=== PATIENT | female | born 1995 | race Caucasian/White ===

== ENCOUNTER 2019-06-01 03:16 | Emergency (ER) | payer OTHER ==
[2019-06-01 03:32] VITALS: BP 131/91; PULSE 89; TEMP 98.8; BMI 25.0
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
[2019-06-01] MEDS ORDERED: ONDANSETRON *ODT* 4 MG TABLET SL ONE (04:15)
[2019-06-01] MEDS ORDERED: IBUPROFEN 600 MG TABLET (FP) PO ONE (04:28)
[2019-06-01] MEDS ORDERED: AZITHROMYCIN 500 MG TABLET PO ONE (04:37)
[2019-06-01] MEDS ORDERED: HEPATITIS B VIR VAC (ENGERIX) 10 MCG/0.5 ML VIAL (PF) IM ONE (04:39)
[2019-06-01] MEDS ORDERED: HIV POST EXPOSURE PROPHYLAXIS KIT NR ONE (04:40)
[2019-06-01] MEDS ORDERED: AZITHROMYCIN 250 MG TABLET ONE (04:43)
[2019-06-01] MEDS ORDERED: HIV POST EXPOSURE PROPHYLAXIS KIT PO ONE (04:43)
[2019-06-01 05:36] LABS: BASO % 0.6 % (0-2.0); EOS % 0.5 % (0-4.5); HEMATOCRIT 37.7 % (32.4-45.2); HEMOGLOBIN 12.8 GM/dL (10.7-15.3); LYMPH % 34.5 % (8-40); MCH 29.7 pg (25.7-33.7); MCHC 33.8 g/dl (32.0-36.0); MEAN CELL VOLUME 87.7 fl (80-96); MEAN PLT VOLUME 7.3 fl (7.5-11.1); MONO % 5.5 % (3.8-10.2); NEUT % 58.9 % (42.8-82.8); PLATELET COUNT 266 K/MM3 (134-434); RDW 12.6 % (11.6-15.6)
[2019-06-01 06:06] LABS: ALBUMIN 4.1 g/dl (3.4-5.0); BILIRUBIN,TOTAL 0.5 mg/dL (0.2-1); BLOOD UREA NITROGEN 10.1 mg/dL (7-18); CALCIUM 9.1 mg/dL (8.5-10.1); CREATININE 0.6 mg/dL (0.55-1.3); POTASSIUM 3.9 mmol/L (3.5-5.1); TOT PROT 7.8 g/dl (6.4-8.2)
[2019-06-02 18:08] LABS: HEP B CORE AB, TOT Negative (Negative)
== END 2019-06-01 06:39 | disposition home or self-care (01) ==
LOC: JER 03:16
PROC: 3E02329 Introduction of Other Anti-infective into Muscle, Percutaneous Approach (ICD-10-PCS; principal; 2019-06-01)
PROC: 3E023GC Introduction of Other Therapeutic Substance into Muscle, Percutaneous Approach (ICD-10-PCS; 2019-06-01)
DX: T76.21XA Adult sexual abuse, suspected, initial encounter (principal); F41.9 Anxiety disorder, unspecified; K29.70 Gastritis, unspecified, without bleeding; Z91.013 Allergy to seafood
CPT/HCPCS: 36415; 80053; 85025; 86704; 86706; 86707; 86708; 86709; 86803; 87340; 87389; 90744; 99283-25; Q0162

== ENCOUNTER 2023-01-09 09:09 | Emergency (ER) | payer OTHER ==
[2023-01-09 09:23] VITALS: BP 131/73; PULSE 70; RESP 18; TEMP 98.5; BMI 28.4
[2023-01-09] MEDS ORDERED: KETOROLAC TROMETHAMINE 30 MG/1 ML VIAL IM ONE (10:14)
[2023-01-09] MEDS ORDERED: LIDOCAINE 5% TOPICAL PATCH TP ONE (10:14)
[2023-01-09] MEDS ORDERED: ACETAMINOPHEN 1000 MG/100 ML BAG IVPB ONE ×2 (10:22→14:36)
[2023-01-09] MEDS ORDERED: METHOCARBAMOL 500 MG TABLET PO ONE (10:22)
[2023-01-09] MEDS ORDERED: METHOCARBAMOL 500 MG TABLET ONE (11:00)
[2023-01-09] MEDS ORDERED: ACETAMINOPHEN INJECTION 100 ML IVPB ONE (11:00)
[2023-01-09] MEDS ORDERED: LIDOCAINE 5% TOPICAL PATCH ONE (11:00)
[2023-01-09 11:41] LABS: URINE APPEARANCE CLEAR; URINE BILIRUBIN NEGATIVE (NEGATIVE); URINE COLOR YELLOW; URINE GLUCOSE (UA) NEGATIVE (NEGATIVE); URINE KETONE NEGATIVE (NEGATIVE); URINE LEUK ESTERASE NEGATIVE (NEGATIVE); URINE NITRITE NEGATIVE (NEGATIVE); URINE PROTEIN NEGATIVE (NEGATIVE); URINE UROBILINOGEN 0.2 mg/dL (0.2-1.0)
[2023-01-09 11:43] LABS: BASO % 0.4 % (0-2.0); EOS % 0.5 % (0-4.5); HEMATOCRIT 39.2 % (32.4-45.2); HEMOGLOBIN 13.4 GM/dL (10.7-15.3); LYMPH % 32.4 % (8-40); MCH 29.8 pg (25.7-33.7); MCHC 34.1 g/dl (32.0-36.0); MEAN CELL VOLUME 87.3 fl (80-96); MEAN PLT VOLUME 7.4 fl (7.5-11.1); MONO % 4.7 % (3.8-10.2); PLATELET COUNT 271 10^3/uL (134-434); RBC 4.49 M/mm3 (3.60-5.2); RDW 12.8 % (11.6-15.6); WHITE BLOOD COUNT 8.1 K/mm3 (4.0-10.0)
[2023-01-09 11:47] LABS: INR 1.1 (0.83-1.09); PROTHROMBIN TIME (PATIENT) 12.8 SEC (9.7-13.0)
[2023-01-09 11:51] LABS: POTASSIUM 4.2 mmol/L (3.5-5.1)
[2023-01-09 11:54] LABS: ALBUMIN 3.7 g/dl (3.4-5.0); BLOOD UREA NITROGEN 15.5 mg/dL (7-18); CALCIUM 9.1 mg/dL (8.5-10.1)
[2023-01-09 11:57] LABS: CREATININE 0.6 mg/dL (0.55-1.3)
[2023-01-09 11:59] LABS: BILIRUBIN,TOTAL 0.3 mg/dL (0.2-1); TOT PROT 6.8 g/dl (6.4-8.2)
[2023-01-09] MEDS ORDERED: morphine CARPU-JECT 4 MG/1 ML DISP.SYRIN IVPUSH ONE (14:26)
[2023-01-09] MEDS ORDERED: morphine SULFATE 4 MG/ML VIAL ONE (14:33)
[2023-01-09] MEDS ORDERED: LIDOCAINE PATCH REMOVAL MC ONE (22:00)
== END 2023-01-09 18:30 | disposition left against medical advice (07) ==
LOC: JER 09:09
PROC: 3E033NZ Introduction of Analgesics, Hypnotics, Sedatives into Peripheral Vein, Percutaneous Approach (ICD-10-PCS; principal; 2023-01-09)
PROC: 3E033GC Introduction of Other Therapeutic Substance into Peripheral Vein, Percutaneous Approach (ICD-10-PCS; 2023-01-09)
PROC: 3E033NZ Introduction of Analgesics, Hypnotics, Sedatives into Peripheral Vein, Percutaneous Approach (ICD-10-PCS; 2023-01-09)
DX: M54.50 Low back pain, unspecified (principal)
CPT/HCPCS: 36415; 72141-TC; 72146-TC; 72148-TC; 74177-TC; 80053; 81003; 82550; 83605; 83690; 84703; 85025; 85610; 85730; 86850; 86900; 86901; 87086; 93005; 93010; 96374; 96375; 96376; 99285-25; Q9967